=== PATIENT | male | born 1995 | race Caucasian/White ===

== ENCOUNTER 2016-09-16 15:48 | Emergency (ER) | payer BC ==
[~2016-09-16] VITALS: Ht 157.5 cm; Wt 71.0 kg
[~2016-09-16 15:48] MED LIST: ACET500T98 PO; AMOX1TAB67 PO; D-ME118S6 PO; IBUP-1542 PO; IBUP200C PO; UDROBDM PO
[2016-09-16 15:54] VITALS: Ht 157.5 cm; Wt 71.0 kg
[2016-09-16] MEDS ORDERED: IBUPROFEN 600 MG TAB PO ONE (17:30)
--- NOTE | 2016-09-16 17:50 | RADRPT ---
PROCEDURE: XR Chest. CLINICAL INDICATION: Trauma. Chest pain. TECHNIQUE: Two views. Frontal and lateral. COMPARISON: 03/17/2015. FINDINGS: The lungs are clear. The heart size is normal. There is no pleural effusion. There is no pneumothorax. IMPRESSION: 1. Normal chest radiograph. RPTAT: QQ .Tim Perez MD, MD Date Time Electronically viewed and signed by .Tim Perez MD, MD on 09/16/2016 17:49 .R/
--- NOTE | 2016-09-16 18:08 | RADRPT ---
PROCEDURE: XR Cervical Spine. CLINICAL INDICATION: Trauma. Pain. TECHNIQUE: Six AP, lateral and odontoid views of the cervical spine were performed. The images wer e reviewed on a PACS workstation. COMPARISON: None. FINDINGS: No fracture is identified. There is maintenance of height of the vertebral bodies and disk spaces. Alignment is maintained without spondylolisthesis. Bone mineralization is within normal limits. P revertebral soft tissues are unremarkable. IMPRESSION: No acute post traumatic abnormality. RPTAT: HMVK .Chilo Colbert MD, MD Date Time Electronically viewed and signed by .Chilo Colbert MD, on 09/16/2016 18:08 .K/
[2016-09-16] MEDS ORDERED: FAMO-18 PO (18:18)
--- NOTE | 2016-09-16 18:23 | ERA ---
ER Documentation Chief Complaint Date/Time DATE: 09/16/16 TIME: 18:20 Chief Complaint VOMITING AND DIARRHEA X2 DAYS HPI This is a 21-year-old male presenting with 3 days of diarrhea and mild nausea. Patient has not taken any medications to relieve the symptoms. Patient describes loose stools that are on and off. Patient denies anorexia, weight loss, migrating pain, constipation, postprandial abdominal pain, new or recently changed medications, genital pain or ingestion of new or undercooked food. ROS All systems reviewed and are negative except as per history of present illness. Medications Home Meds Active Scripts Famotidine* (Pepcid*) 20 Mg Tablet, 20 MG PO BID for 4 Days, TAB Prov:EDGAR ROJAS PA-C 09/16/16 Guaifenesin-Dextromethorphan* (Robitussin* DM) 100MG/10MG/5ML Syrup, 5 ML PO Q6H Y for COUGH, #120 ML Prov:EZEQUIEL CHRISTIANSON PA-C 05/30/15 Ibuprofen* (Ibuprofen*) 200 Mg Capsule, 200 MG PO Q6, #30 CAP 0 Refills Prov:EZEQUIEL CHRISTIANSON PA-C 05/30/15 Acetaminophen (Tylenol) 500 Mg Tab, 500 MG PO Q6 Y for FEVER, #30 TAB 0 Refills Prov:EZEQUIEL CHRISTIANSON PA-C 05/30/15 Dextromethorphan Hb-Promethazine Hcl (Promethazine DM Syrup) 180 Ml Syrup, 5 ML PO Q6 Y for COUGH for 5 Days, ML Prov:MARGARITA PORTILLO MD 03/17/15 Ibuprofen* (Motrin*) 600 Mg Tab, 600 MG PO Q6, #14 TAB Prov:MARGARITA PORTILLO MD 03/17/15 Amoxicillin-Clavulanate K* (Augmentin*) 500 Mg Tab, 500 MG PO TID for 10 Days, TAB Prov:MARGARITA PORTILLO MD 03/17/15 Allergies Allergies: Coded Allergies: vancomycin (Verified Allergy, Unknown, 05/30/15) PMhx/Soc History of Surgery: No Anesthesia Reaction: No Hx Neurological Disorder: No Hx Respiratory Disorders: No Hx Cardiac Disorders: No Hx Psychiatric Problems: No Hx Miscellaneous Medical Probl: Yes (LIVER TRANSPLANT; BORN WITH ONE KIDNEY ONLY) Hx Alcohol Use: No Hx Substance Use: No Hx Tobacco Use: No Smoking Status: Never smoker Physical Exam Vitals Vital Signs Date Time Temp Pulse Resp B/P Pulse Ox O2 Delivery O2 Flow Rate FiO2 09/16/16 15:54 97.7 72 16 123/65 95 Physical Exam Const: Well-appearing 21-year-old male in no acute distress Head: Atraumatic Eyes: Normal Conjunctiva ENT: Normal External Ears, Nose and Mouth. Neck: Full range of motion..~ No meningismus. Resp: Clear to auscultation bilaterally Cardio: Regular rate and rhythm, no murmurs Abd: Soft, non tender, non distended. Normal bowel sounds Skin: No petechiae or rashes Back: No midline or flank tenderness Ext: No cyanosis, or edema Neur: Awake and alert Psych: Normal Mood and Affect Results 24 hrs Current Medications Medications (Trade) Dose Ordered Sig/Moise Route PRN Reason Start Time Stop Time Status Last Admin Dose Admin Ibuprofen (Motrin) 600 mg ONCE ONCE PO 09/16/16 17:30 09/16/16 17:31 DC 09/16/16 17:35 Procedures/MDM Patient was evaluated and worked up for abdominal discomfort and diarrhea as described in history and physical examination. Patient denied any pain medication in the ED. the current most likely diagnosis is viral gastroenteritis versus noninfectious/noninvasive diarrhea.. The treatment plan will thus include outpatient Pepcid.. At this time I do not suspect appendicitis, intestinal ischemia, peritonitis, intestinal obstruction, perforated viscus, acute pancreatitis, cholangitis, cholelithiasis, mechanical obstruction, AAA; as well as testicular torsion, epididymitis, prostatitis, or UTI. The patient is well appearing, and tolerates PO. I have spoke with the patient regarding their condition and future management. They have verbally responded that they understand their status and treatment plan. The patients vitals are stable, and their current condition is appropriate for discharge. The patient will be given discharge instructions with return precautions. Departure Diagnosis: Primary Impression: Viral gastroenteritis Condition: Stable Patient Instructions: Gastroenteritis, Viral (7Y-Adult) [facility] Usted se gar hecho un examen mdico de control que le indica que no est en robina condicin que requiera tratamiento urgente en el Departamento de Emergencia. Un estudio ms profundo y el tratamiento de lawrence condicin pueden esperar sin ningn riesgo hasta que usted sea atendida/o en el consultorio de lawrence mdico o robina cl samina. Es responsabilidad suya arreglar robina jg para el seguimiento del jess. MANEJO DE CONDICIONES NO URGENTES EN EL FUTURO 1) Si usted tiene un mdico de atencin primaria: Usted debera llamar a lawrence mdico de atencin primaria antes de venir al departamento de emergencia. Despus de las horas de consultorio, lawrence doctor o lawrence asociado/a est disponible por telfono. El mdico o enfermero de valerio en el servicio telefnico puede asesorarle por jer medio para atender el problema, o jess contrario se puede programar robina jg. 2) Si usted no tiene un mdico de atencin primaria: Llame al mdico o clnica de referencia que aparece abajo kamla las horas de consultorio para hacer robina jg para que le vean. CLINICAS: [facility] [place] [phone] [facility] [facility] [phone] [address] [facility] [facility] [phone] [address] [facility]. [facility] [phone] [facility] [address] [place] [id number] [phone] [facility]. [phone] [address] Additional Instructions: Follow up with your PCP within the next 1-3 days for a more thorough evaluation and a possible referral to a specialist. Return the the emergency department immediately if symptoms worsen or change. If you have any questions regarding medications, ask your pharmacist or us before you leave. If any adverse reactions occur while taking your medications, discontinue the treatment and return to the emergency department immediately. Take your medications as directed, and complete the entire course of treatment. EDGAR ROJAS PA-C Sep 16, 2016 18:23
[2016-09-16 18:41] VITALS: BP 126/70; PULSE 71; RESP 16
== END 2016-09-16 18:42 | disposition home or self-care (01) ==
LOC: FTE 15:48
DX: A08.4 Viral intestinal infection, unspecified (principal)
CPT/HCPCS: 71020; 72050; Z7502; Z7610

== ENCOUNTER 2017-07-28 05:48 | Emergency (ER) | END 2017-07-28 08:14 | disposition home or self-care (01) ==

== ENCOUNTER 2017-09-24 05:47 | Inpatient (IN) | END 2017-09-29 15:04 | disposition home or self-care (01) | DRG 389 ==

== ENCOUNTER 2018-02-17 09:14 | Emergency (ER) | END 2018-02-17 11:32 | disposition home or self-care (01) ==

== ENCOUNTER 2018-02-20 02:02 | Emergency (ER) | END 2018-02-20 05:20 | disposition home or self-care (01) ==

== ENCOUNTER 2018-02-21 01:13 | Inpatient (IN) | END 2018-03-02 18:59 | disposition home or self-care (01) | DRG 865 ==

== ENCOUNTER 2019-01-14 05:06 | Emergency (ER) | payer BC ==
[~2019-01-14] VITALS: Ht 157.5 cm; Wt 75.3 kg
[~2019-01-14 05:06] MED LIST changes: -ACET500T98 PO; -AMOX1TAB67 PO; +CYCL5TAB PO; -D-ME118S6 PO; +FIORICET PO; -IBUP-1542 PO; -IBUP200C PO; +LANS15CA5 PO; +LANT3I SC; +MYCO250C3 PO; +NOVO3I SC; +NPH,100V SC; +PRED2.5T3 PO; +TACR1CAP PO; -UDROBDM PO; +URSO300C3 PO; +VALA500T PO; +[UNRECOGNIZED DRUG - CODE] PO
[2019-01-14 05:11] VITALS: BP 139/95; PULSE 93; RESP 20; Ht 157.5 cm; Wt 75.3 kg
== END 2019-01-14 07:49 | disposition home or self-care (01) ==
LOC: FTE 05:06
DX: K06.8 Other specified disorders of gingiva and edentulous alveolar ridge (principal); E11.9 Type 2 diabetes mellitus without complications; Z79.4 Long term (current) use of insulin
CPT/HCPCS: 85025; 85610; 85730; 99283